=== PATIENT | female | born 1985 | race Caucasian/White ===

== ENCOUNTER → 2017-04-23 | Day surgery (SDC) | payer OTHER ==
[~2017-04-23] VITALS: Ht 162.6 cm; Wt 83.9 kg
[~2017-04-23] MED LIST: 0.9% Sodium Chloride 1,000 ML IV SCH; FLUT9.9S NS; LOPE2CAP PO; MEDR150D9 IM; METH750T3 PO; ONDA-53 PO; PANT20T PO; PROP10TA8 PO; Sodium Chloride LOK Flush 10 mL Syringe IV PRN; fentaNYL-PF 50 mCg/mL 2 mL Inj IVPUSH PRN
[2017-04-23 12:07] VITALS: BP 128/83; PULSE 68; RESP 16; O2SAT 96
[2017-04-23 13:49] VITALS: BP 122/67; PULSE 72; RESP 12; O2SAT 100
[2017-04-23 13:58] VITALS: BP 128/94; PULSE 75; RESP 14; O2SAT 100
[2017-04-23 14:04] VITALS: BP 143/98; PULSE 83; RESP 14; O2SAT 100
--- NOTE | 2017-04-23 14:43 | ENDO ---
[address] [address] ENDOSCOPY PROCEDURE PATIENT: ROHIT THOMAS : 1985 MR#: [id number] ADMIT: 04/23/2017 JOB ID: [id number] PRIMARY CARE PROVIDER: TARIK Newsome PROCEDURE: Colonoscopy with hot snare polypectomy and cold forceps polypectomy. INDICATIONS: A 31-year-old female with transient self-limited episode of diarrhea, probably infectious, although stool culture was negative. All of her symptoms resolved and she was at her baseline prior to prepping for the colonoscopy. She does not have a chronic diarrhea but occasionally has some intermittent diarrhea. She averages a couple of bowel movements per day. Colonoscopic interrogation is pursued. EQUIPMENT: Delfmems 180 AL. SEDATION: Versed 6 mg, 125 mcg fentanyl. COMPLICATIONS: None identified. BOWEL PREPARATION: Very adequate. PROCEDURE INFORMATION: After the risks and benefits were explained, written and verbal informed consent was obtained. The patient was brought into the endoscopy suite and placed into the left lateral decubitus position. Sedation was achieved using the above-stated medications with the addition of oxygen via nasal cannula. Digital rectal examination was accomplished. Minimal internal hemorrhoids noted. The scope was introduced into the rectum and advanced under direct visualization to the cecum as identified by the appendiceal orifice and ileocecal valve. The scope was advanced into the terminal ileum. We then slowly withdrew to carefully examine the mucosa for any defects or lesions. Multiple direct views were made through the dentate line for exclusion of pathology. The colon was decompressed and the scope removed from the patient, who tolerated the procedure well. FINDINGS: No proctitis. No colitis throughout. The mucosa looked normal and healthy. The terminal ileal mucosa appeared normal. There was a diminutive polyp in the descending colon removed with cold forceps. There was a short pedunculated 6-7 mm polyp in the sigmoid colon removed with hot snare. No other significant pathology was appreciated throughout. ENDOSCOPIC DIAGNOSES: 1. Colon polyps. 2. Mild internal hemorrhoids. RECOMMENDATIONS: 1. Await histopathology. 2. If adenomatous features are confirmed, repeat colonoscopy will be suggested for five years' time. CC: TARIK Newsome
--- NOTE | 2017-04-25 17:43 | PATH ---
SURGICAL PATHOLOGY Attending Physician:Sherry Coleman CASE STATUS: Signed Out PATIENT NAME: ROHIT THOMAS PID: [id number] : 1985 DATE COLLECTED:04/23/2017 00:00 SPECIMEN: 1: Colon, Polyp 2: Colon, Polyp CLINICAL HISTORY: 1). DESCENDING POLYP 2). SIGMOID POLYP FINAL DIAGNOSIS: 1. Descending colon Polyp, Biopsy: Tubular adenoma. 2. Sigmoid Polyp, Biopsy: Tubular adenoma. ICD10: D12.6 GROSS DESCRIPTION: The specimen is received in two formalin filled containers labeled with the patient's name. 1). The specimen is labeled "descending polyp" and consists of a 0.1 x 0.1 x 0.1 CM portion of tissue which is entirely submitted in one cassette. 2). The specimen is labeled "sigmoid polyp" and consists of a 0.5 x 0.5 x 0.5 CM portion of tissue which is entirely submitted in cassette 2A. 04/24/2017ID ICD-9 CODES: CPT CODES: 1: 06990 2: 73556 Electronically Signed Out Landon Spear MD [facility] Pathology [facility], [place] [address] Technical component performed at [facility], [address] [place] [address] Ave, [address], [place], [address]
== END | disposition home or self-care (01) ==
LOC: END 00:50
PROVIDERS: ATTEND Internal Medicine Gastroenterology
DX: D12.4 Benign neoplasm of descending colon (principal); R19.7 Diarrhea, unspecified; D12.5 Benign neoplasm of sigmoid colon; K64.8 Other hemorrhoids
CPT/HCPCS: 45380; 45385; G0500; J2250; J3010; J7030